=== PATIENT | male | born 1945 | race Caucasian/White ===

== ENCOUNTER 2019-02-01 09:46 | Emergency (ER) | payer MEDICARE ==
[~2019-02-01] VITALS: Ht 172.7 cm; Wt 102.2 kg
[2019-02-01 09:47] VITALS: BP 152/77
[2019-02-01] MEDS ORDERED: METO1TAB32 PO (09:59)
[2019-02-01] MEDS ORDERED: PRED5PAK PO (09:59)
[2019-02-01] MEDS ORDERED: EZET10TA21 PO (09:59)
[2019-02-01] MEDS ORDERED: CLOP75TA2 PO (09:59)
[2019-02-01] MEDS ORDERED: COQ-30CA2 PO (09:59)
--- NOTE | 2019-02-01 11:00 | REP ---
LEFT FOOT, FOUR VIEWS: Four views of the left foot performed. There is no acute fracture or dislocation. There is inferior calcaneal spurring. Scattered vascular calcifications are noted in the soft tissues. Spurring and subchondral sclerosis is noted at the 1st metatarsophalangeal joint. IMPRESSION: Degenerative changes without fracture or dislocation. Electronically Signed by Eugenio Mack MD 02/01/2019 11:58 P
== END 2019-02-01 11:24 | disposition home or self-care (01) ==
LOC: M ED 09:46
DX: S90.32XA Contusion of left foot, initial encounter (principal); W22.8XXA Striking against or struck by other objects, initial encounter; Y92.89 Other specified places as the place of occurrence of the external cause; Y99.0 Civilian activity done for income or pay; B35.3 Tinea pedis; I11.9 Hypertensive heart disease without heart failure; Z95.5 Presence of coronary angioplasty implant and graft; Z88.2 Allergy status to sulfonamides; Z79.899 Other long term (current) drug therapy; Z79.02 Long term (current) use of antithrombotics/antiplatelets; Z79.52 Long term (current) use of systemic steroids

== ENCOUNTER 2020-11-09 09:38 | Emergency (ER) | payer MEDICARE ==
[~2020-11-09] VITALS: Ht 170.2 cm; Wt 103.0 kg
[~2020-11-09 09:38] MED LIST: CLOP75TA2 PO; COQ-30CA2 PO; EZET10TA21 PO; METO1TAB32 PO; PRED5PAK PO
--- NOTE | 2020-11-09 10:52 | REP ---
INDICATION: pain after twisting COMPARISON: None TECHNIQUE: Five views FINDINGS: There is mild tricompartmental marginal osteophytosis with mild medial compartmental and patellofemoral joint space narrowing. There is an incidental fabella. There is no acute fracture, dislocation, or subluxation. Mild calcifications are seen in both medial and lateral compartments. IMPRESSION: Chronic changes as described above. There is no evidence of an acute abnormality. Meniscal calcifications likely secondary to calcified meniscal degenerative changes. <Electronically signed by Jordan Montano > 11/09/20 1047
[2020-11-09] MEDS ORDERED: NAPR-837 PO (11:35)
[2020-11-09 11:49] VITALS: BP 140/81
== END 2020-11-09 11:50 | disposition home or self-care (01) ==
LOC: M ED 09:38
DX: S89.91XA Unspecified injury of right lower leg, initial encounter (principal); X50.9XXA Other and unspecified overexertion or strenuous movements or postures, initial encounter; Y92.018 Other place in single-family (private) house as the place of occurrence of the external cause; I10 Essential (primary) hypertension; I25.10 Atherosclerotic heart disease of native coronary artery without angina pectoris; Z95.5 Presence of coronary angioplasty implant and graft; Z79.899 Other long term (current) drug therapy; Z79.01 Long term (current) use of anticoagulants; Z88.1 Allergy status to other antibiotic agents; Z88.2 Allergy status to sulfonamides

== ENCOUNTER → 2020-11-13 | Outpatient (CLI) | payer MEDICARE ==
[~2020-11-13] MED LIST changes: +NAPR-837 PO
--- NOTE | 2020-11-13 19:11 | REP ---
INDICATION: MENISCUS TEAR, SEVERE PAIN UNABLE TO WT BEAR/STRAI. COMPARISON: Radiographs 11/09/2020. TECHNIQUE: Multiple sequences obtained in the axial, coronal and sagittal planes. FINDINGS: Menisci: There are complex tears of the posterior horn of medial meniscus and posterior horn of lateral meniscus. Cruciate ligaments: Intact. Collateral ligaments: Intact. Extensor mechanism/patellar retinacula: Intact. Cartilage: There is moderately severe chondromalacia of the medial femoral condyle and tibial plateau, with articular surface irregularity particularly of the femoral condyle. There is relatively mild diffuse chondromalacia of the lateral femoral condyle and tibial plateau, as well as the patella. Bone marrow: There is mild subchondral marrow edema in the medial femoral condyle and tibial plateau. Joint fluid: There is a large joint effusion. There is a suprapatellar plica. Popliteal region: No cyst. There is diffuse circumferential soft tissue edema. IMPRESSION: Complex tears of posterior horn medial meniscus and posterior horn lateral meniscus. Cruciate and collateral ligaments are intact. Moderately severe chondromalacia medial femoral condyle and tibial plateau with subchondral marrow edema. Large joint effusion. <Electronically signed by Eugenio Mack > 11/13/20 0136
== END ==
LOC: M PLARAD 14:48
PROVIDERS: ATTEND Orthopaedic Surgery Adult Reconstructive Orthopaedic Surgery
DX: S83.241A Other tear of medial meniscus, current injury, right knee, initial encounter (principal); M23.3 Other meniscus derangements; M94.20 Chondromalacia, unspecified site; Y92.9 Unspecified place or not applicable; Y93.9 Activity, unspecified; Y99.9 Unspecified external cause status

== ENCOUNTER → 2020-11-16 | Outpatient (CLI) | payer MEDICARE ==
[~2020-11-16] MED LIST changes: +ASPI81CH33 PO; +D200CAP2 PO; +GNP1000T11 PO; +LUTE20CA11 PO; +MULT1TAB7 PO; +POTA99TA14 PO; +VITA-243 PO; +[UNRECOGNIZED DRUG - OTHER]
== END ==
LOC: M LABSMTC 11:26
PROVIDERS: ATTEND Anesthesiology
DX: Z01.818 Encounter for other preprocedural examination (principal); Z20.822 Contact with and (suspected) exposure to COVID-19

== ENCOUNTER 2020-11-19 11:13 | Day surgery (SDC) | payer MEDICARE ==
[~2020-11-19] VITALS: Ht 172.7 cm; Wt 93.4 kg
[~2020-11-19 11:13] MED LIST changes: -ASPI81CH33 PO; +LIDOCAINE 1% MDV 20ML VIAL SQ PRN
[2020-11-19] MEDS ORDERED: ASPI81CH33 PO (11:45)
[2020-11-19] MEDS ORDERED: ACETAMINOPHEN 500 MG TAB PO ONE (11:50)
[2020-11-19] MEDS ORDERED: GABAPENTIN 300 MG CAP PO ONE (11:50)
[2020-11-19] MEDS ORDERED: LR 1,000 ML IV ONE (11:50)
[2020-11-19] MEDS ORDERED: ONDANSETRON 4MG/2ML VIAL IV ONE (11:55)
[2020-11-19] MEDS ORDERED: CelecoXIB 400 MG CAP PO ONE (11:55)
[2020-11-19] MEDS ORDERED: fentaNYL 100 MCG/2 ML INJECTION (J3010) As Ordered ONE (12:16)
[2020-11-19] MEDS ORDERED: MIDAZOLAM INJ 2MG/2ML VIAL (J2250 PER 1MG) As Ordered ONE (12:17)
[2020-11-19] MEDS ORDERED: EPINEPHrine 1MG/ML INJ 30ML MD-VIAL As Ordered ONE (12:37)
[2020-11-19] MEDS ORDERED: BUPIVACAINE/EPIN 0.5% 30 ML VIAL As Ordered ONE (12:37)
[2020-11-19] MEDS ORDERED: propofoL 200 MG/20 ML VIAL As Ordered ONE (12:40)
[2020-11-19] MEDS ORDERED: LIDOCAINE 2% 100MG/5ML SDV (FOR ANES.) As Ordered ONE (12:42)
[2020-11-19] MEDS ORDERED: ETOMIDATE INJ 20MG/10ML VIAL As Ordered ONE (13:15)
[2020-11-19] MEDS ORDERED: oxyCODONE 5MG TAB PO PRN (14:35)
[2020-11-19] MEDS ORDERED: ONDANSETRON 4MG/2ML VIAL IV PRN (14:35)
[2020-11-19] MEDS ORDERED: LR 1,000 ML IV SCH ×2 (14:35)
[2020-11-19] MEDS ORDERED: fentaNYL 100 MCG/2 ML INJECTION (J3010) IV PRN (14:35)
--- NOTE | 2020-11-19 15:00 | ROOPDOC ---
[facility] Report Of Operation Report of Operation DATE OF PROCEDURE: 11/19/20 PREPROCEDURE DIAGNOSES: Right knee medial and lateral meniscal tears POSTPROCEDURE DIAGNOSES: Right knee medial and lateral meniscal tears with dif fuse grade 4 changes to Medial femoral condyle and plica present PROCEDURE: Left knee arthroscopic debridement Debridement of medial meniscal tear, posterior horn and body Debridement of lateral meniscal tear, posterior body Abrasion chondroplasty to medial femoral condyle Tricompartmental debridement Plicaectomy suprapatellar pouch SURGEON: Giovanni Martini MD [employer] OPERATOR: None ANESTHESIA: Gen. anesthetic LMA ESTIMATED BLOOD LOSS: Less than 15 mL mL. COMPLICATIONS: No known complications. REMARKS: Tourniquet inflated for 34 minutes. Overall, there was more significant osteoarthritic change noted on the diagnostic arthroscopy compared to the MRI. PROCEDURE NOTE: The patient was seen in the preoperative area, Consent was reviewed or obtained and the appropriate extremity was marked. DESCRIPTION OF PROCEDURE: The patient was brought to the operating room and after a surgical pause, the anesthetic was induced. The patient was appropriately positioned supine on the operating room table. A tourniquet was applied to the appropriate thigh with appropriate padding. Side bolster was also applied to help with manipulation of the extremity during the procedure. The extremity was prepped with chlorhexidine. The patient was draped in the normal sterile fashion. After a surgical safety checklist was performed, and a timeout was performed, the tourniquet was inflated and the incision over the lateral portal site was carried out. The trocar was introduced using the blunt tip. The scope was introduced and the fluid was allowed to run until the joint was insufflated with the scope in the patellofemoral joint. A diagnostic arthroscopy was then carried out. A medial portal was established using needle localization technique. A superior lateral portal was also established using needle localization. Suprapatellar pouch: Inflamed synovium with plica debrided with arthroscopic shaver Trochlea: 1-2 Patella: Grade 1-2 changes Debrided with arthroscopic shaver Medial gutter: Clear Lateral gutter: Clear. Medial meniscus: Posterior horn extending into body, complex meniscal tear, debrided with punches and arthroscopic shaver. Medial femoral condyle: Diffuse grade 4 changes Medial tibial condyle: Grade 1-2 changes debrided with shaver ACL: Stable with stranding apparent Lateral meniscus: Complex posterior body tear, debrided with punches and arthroscopic shaver. Lateral femoral condyle: Grade 1 Lateral tibial plateau: Grade 1 Once the arthroscopic procedure was completed, the fluid was removed from the joint and the wounds were closed with 3. 0 Monocryl suture. Local anesthetic of 0.5% Marcaine with epi was instilled in the soft tissues and into the joint region. Mastisol was applied to the skin followed by Steri-Strips and Telfa and Tegaderm dressing. This was reinforced with an abdominal pad and a large Declan wrap was placed up to the level of the thigh from the foot and ankle. The patient tolerated the procedure well with no known complications. The patient will be seen for follow-up within 2 weeks, as scheduled. Postoperative instruction booklet was provided. The patient will have prescriptions for oxycodone for pain, and senna for constipation. Aspirin may be discontinued and the patient's home Clopidogrel can be restarted postop day 1. Tylenol can be used as directed by bottle instructions. Prescriptions were sent to [facility] pharmacy as requested. These were for oxycodone and for senna. I met with the patient's in the waiting room and provided her with some instructions as described above The patient demonstrated severe medial femoral condylar changes. I will see him for follow-up in approximately 2 weeks' time to see how he is doing. At that point, we'll make the decision if he would like to move forward with a total knee procedure, as he does have tricompartmental involvement. 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 There is also consideration for cortisone injections. As the patient primarily resides in [place]. GIOVANNI MARTINI MD Nov 19, 2020 15:00
[2020-11-19 16:25] VITALS: BP 151/90
--- NOTE | 2020-11-19 16:38 | ECGEPIP ---
[facility] Test Date: 2020-11-19 Pat Name: JACOB HAGEN Department: Room: - Gender: Male Bend Up: RF : 1945 Requested By: ARACELI Banerjee Order Number: [id number] Reading MD: Brisa Davenport Measurements Intervals [place] Rate: 84 P: 53 OR: 244 QRS: -42 QRSD: 112 T: 37 QT: 374 QTc: 441 Interpretive Statements Sinus rhythm with 1st degree AV block Left axis deviation LAFB Minimal voltage criteria for LVH, may be normal variant ( Elijah product ) Septal infarct , age undetermined NO PRIOR Electronically Signed on 11-19-2020 16:38:22 EDT by Brisa Davenport
== END 2020-11-19 16:25 | disposition home or self-care (01) ==
LOC: M SDC 11:13
PROVIDERS: ATTEND Orthopaedic Surgery Adult Reconstructive Orthopaedic Surgery
DX: S83.241A Other tear of medial meniscus, current injury, right knee, initial encounter (principal); S83.281D Other tear of lateral meniscus, current injury, right knee, subsequent encounter; M11.20 Other chondrocalcinosis, unspecified site; X58.XXXA Exposure to other specified factors, initial encounter; Y92.89 Other specified places as the place of occurrence of the external cause; I25.2 Old myocardial infarction; I10 Essential (primary) hypertension; E78.00 Pure hypercholesterolemia, unspecified; Z95.5 Presence of coronary angioplasty implant and graft; M54.2 Cervicalgia; G47.30 Sleep apnea, unspecified; R06.83 Snoring; T88.4XXD Failed or difficult intubation, subsequent encounter; Z88.2 Allergy status to sulfonamides; Z79.899 Other long term (current) drug therapy; Z79.02 Long term (current) use of antithrombotics/antiplatelets; Z79.82 Long term (current) use of aspirin; Z79.52 Long term (current) use of systemic steroids
CPT/HCPCS: 29880; 93005; J2250; J2405; J3010

== ENCOUNTER 2020-11-24 17:36 | Observation (INO) | payer MEDICARE ==
[~2020-11-24] VITALS: Ht 170.2 cm; Wt 102.5 kg
[~2020-11-24 17:36] MED LIST changes: +ASPI81CH33 PO; -LIDOCAINE 1% MDV 20ML VIAL SQ PRN
[2020-11-24] MEDS ORDERED: OXYC-517 PO (17:46)
--- NOTE | 2020-11-24 18:53 | REP ---
INDICATION: R/O DVT. COMPARISON: None. TECHNIQUE: Multiple ultrasonographic images of the deep venous structures of the right lower extremity were obtained from the inguinal ligament to the ankle. Venous compression techniques, color doppler imaging, and augmentation techniques were also obtained where appropriate. As per the ACR guidelines the anterior tibial vein can not be effectively evaluated. Only compression techniques in the calf on the peroneal and posterior tibial veins was attempted/performed. FINDINGS: There is no abnormal echogenic material seen within any of the visualized deep venous structures that would suggest acute thrombosis. Coaptation is unremarkable throughout. Doppler interrogation shows an expected response to respiratory variability and augmentation in the thigh. Compression techniques in the calf showed no abnormality. The color flow images show what appears to be a normal vascular pattern throughout the thigh. IMPRESSION: There is no ultrasonographic evidence of deep venous thrombosis involving any of the visualized deep venous structures of the right lower extremity as described above. <Electronically signed by Jordan Montano > 11/24/20 2622
[2020-11-24 20:37] LABS: BASO # 0.1 10^3/uL (0.0-0.2); BASO % 0.9 % (0.0-1.0); EOS # 0.2 10^3/uL (0.0-0.5); EOS % 2.3 % (0.0-3.0); HEMATOCRIT 41.3 % (42.0-52.0); HEMOGLOBIN 13.5 g/dl (13.5-17.5); LYMPH # 1.1 10^3/uL (1.5-5.0); LYMPH % 15.3 % (24.0-44.0); MEAN CORPUSCULAR HGB CONC 32.7 g/dl (32.0-36.5); MEAN CORPUSCULAR VOLUME 91.8 fl (80.0-96.0); MONO # 1.1 10^3/uL (0.0-0.8); MONO % 16.4 % (2.0-8.0); NEUTROPHILS # 4.5 10^3/uL (1.5-8.5); NEUTROPHILS % 64.8 % (36.0-66.0); PLATELET COUNT, AUTOMATED 271 10^3/uL (150-450); WHITE BLOOD COUNT 6.9 10^3/uL (4.0-10.0)
[2020-11-24] MEDS ORDERED: CEFEPIME HCL 1 GM in D5W MINI-BAG PLUS 50 ML IV ONE (21:00)
[2020-11-24] MEDS ORDERED: MORPHINE 2 MG/ML 1ML VIAL (J2270) IV ONE (21:00)
[2020-11-24] MEDS ORDERED: VANCOMYCIN HCL 1,000 MG, VIAL MATE ADAPTER 1 EACH in NS 250 ML IV ONE (21:00)
[2020-11-24 21:03] LABS: ERYTHROCYTE SEDIMENTATION RATE 49 mm/hr (0-20)
[2020-11-24 21:09] LABS: ALBUMIN 3.2 GM/DL (3.2-5.2); ALT/SGPT 34 U/L (12-78); BILIRUBIN,DIRECT 0.1 MG/DL (0.0-0.2); BILIRUBIN,TOTAL 0.3 MG/DL (0.2-1.0); BLOOD UREA NITROGEN 11 MG/DL (7-18); CALCIUM LEVEL 8.6 MG/DL (8.8-10.2); CARBON DIOXIDE LEVEL 27 MEQ/L (21-32); CHLORIDE LEVEL 105 MEQ/L (98-107); GLOMERULAR FILTRATION RATE > 60.0 (>42); GLUCOSE, FASTING 116 MG/DL (70-100); POTASSIUM SERUM 4.3 MEQ/L (3.5-5.1); SODIUM LEVEL 137 MEQ/L (136-145); TOTAL PROTEIN 6.6 GM/DL (6.4-8.2)
[2020-11-24] MEDS ORDERED: ACETAMINOPHEN TAB 650MG DOSE (2X325MG) PO PRN (21:25)
[2020-11-24] MEDS ORDERED: MAALOX 30 ML SUSP *UDC PO PRN (21:25)
[2020-11-24] MEDS ORDERED: MOM 30ML SUSPENSION UDC PO PRN (21:25)
--- NOTE | 2020-11-24 21:27 | HPEPDOC ---
[facility] Medical History & Physical Date of Admission Nov 24, 2020 Date of Service: Nov 24, 2020 Other Provider Dominguez Smith Attending Physician: PETTY DHALIWAL MD History and Physical TIME OF SERVICE: 930pm CHIEF COMPLAINT: pain HISTORY OF PRESENT ILLNESS: This 75 yr old M had right knee arthroscopy, medial and lateral meniscus debridement and medial femoral chondroplasty on Thursday; thereafter he was able to walk with the use of crutches but yesterday he developed right foot pain redness and swelling that spread upwards and affects his whole right lower leg. He is still able to bend his knee but has severe pain. He denies associated fever or chills. REVIEW OF SYSTEMS: 10-point review of systems negative except as listed in HPI PAST MEDICAL/ SURGICAL HISTORY: CAD w placement of 3 stents, SHADE, RA on chronic steroids, appendectomy, right shoulder surgery, right knee surgery SOCIAL HISTORY: He is from [place], comes to the area in the summer & lives with his . FAMILY HISTORY: n/a ALLERGIES: Please see below. HOME MEDICATIONS: Please see below. PHYSICAL EXAMINATION: Vital Signs Date Time Temp Pulse Resp B/P (MAP) Pulse Ox O2 Delivery O2 Flow Rate FiO2 11/24/20 17:37 97.9 100 20 159/86 (110) 95 Room Air GENERAL APPEARANCE: well-nourished and developed / NAD HEENT: EOMI / MMM&P CARDIOVASCULAR: RRR/NMRG LUNGS: CTAB on RA ABDOMEN: contour obese MUSCULOSKELETAL: right foot and lower leg swollen and warm NEUROLOGICAL: CN 2-12 intact / speech not dysarthric PSYCHIATRIC: A&O x3 LABORATORY DATA: IMAGING: RLE US: neg for DVT / Right Knee xray: report pending....... MICROBIOLOGY: respiratory panel neg ASSESSMENT: is a 75 yr old w CAD, SHADE, RA and Obesity who will be admitted for RLE cellulitis. PLAN: 1 RLE Cellulitis Despite the absence of SIRS and the absence of knee pain and swelling there is concern that the may harbor atypical or hospital acquired organisms Plan: admit to medical floor / elevate leg / fall precautions/ f/u xray / c/w Cefazolin and Vanc pending blood cx / Oxycodone / the day time team may consider Ortho consult & PT consult if indicated 2 Chronic CAD Plan: Plavix, Zetia, Metoprolol 3 RA Plan: prednisone 4 SHADE Plan: nocturnal O2 w pulse ox 5 Class 1 Obesity Complicates care DVT px w Lovenox Dispo: home after at less than 2 midnights stay Home Medications Scheduled Ascorbic Acid (Vitamin C) 500 Mg Tablet, 500 MG PO DAILY Clopidogrel Bisulfate (Clopidogrel) 75 Mg Tablet, 75 MG PO DAILY Ezetimibe (Ezetimibe) 10 Mg Tablet, 10 MG PO DAILY Garlic (Garlic) 100 Mg Tablet, 100 MG PO DAILY Glucosamine Sulfate Dipot Chlr (Glucosamine) 1,000 Mg Tablet, 1,000 MG PO DAILY Lutein (Lutein) 20 Mg Capsule, 20 MG PO DAILY Lysine (l-Lysine) 500 Mg Tablet, 500 MG PO DAILY Metoprolol Succinate (Metoprolol Succinate) 25 Mg Tab.er.24h, 25 MG PO DAILY Multivitamin with Minerals (Multiple Vitamin) 1 Each Tablet, 1 TAB PO DAILY [place]-3 Fatty Acids/Fish Oil (Fish Oil 1,000 mg Capsule) 1 Each Capsule, 1,000 MG PO DAILY Potassium Gluconate (Potassium) 99 Mg Tablet, 99 MG PO DAILY Prednisone (Prednisone) 5 Mg Tablet, 5 MG PO DAILY Ubidecarenone/Vit E Acet (Co Q-10 100 mg Softgel) 1 Each Capsule, 100 MG PO RICH LY Vit A/Vit C/Vit E/Zinc/Copper (Preservision Areds Softgel) 1 Each Capsule, 1 CAP PO DAILY Scheduled PRN Oxycodone HCl (Oxycodone HCl) 5 Mg Tablet, 5 MG PO Q4H PRN for pain Allergies Coded Allergies: Sulfa (Sulfonamide Antibiotics) (Verified Allergy, Intermediate, hives, 02/01/19) A-FIB/CHADSVASC A-FIB History Current/History of A-Fib/PAF?: No Current PO Anticoag Therapy: No PETTY DHALIWAL MD Nov 24, 2020 21:27
[2020-11-24] MEDS ORDERED: L-LY500T6 PO (21:36)
[2020-11-24] MEDS ORDERED: PRED5TA PO (21:36)
[2020-11-24] MEDS ORDERED: PRESCAP PO (21:39)
[2020-11-24] MEDS ORDERED: FISH1000 PO (21:39)
[2020-11-24] MEDS ORDERED: ODOR100T3 PO (21:39)
[2020-11-24] MEDS ORDERED: CO Q100C10 PO (21:39)
[2020-11-24] MEDS: VANCOMYCIN HCL 1,000 MG, VIAL MATE ADAPTER 1 EACH in NS 250 ML IV SCH (22:21)
[2020-11-24 22:31] LABS: RSV AMPLIFICATION NEGATIVE (NEGATIVE)
[2020-11-24 22:45] VITALS: BP 138/60
[2020-11-24] MEDS ORDERED: MORPHINE 2 MG/ML 1ML VIAL (J2270) IV PRN (23:05)
[2020-11-24] MEDS ORDERED: KETOROLAC 30 MG/ML 1ML VIAL IV PRN (23:05)
[2020-11-24] MEDS ORDERED: oxyCODONE 5MG TAB PO PRN (23:10)
[2020-11-24] MEDS: ceFAZolin SOD 1 GM in D5W MINI-BAG PLUS 50 ML IV SCH (23:47)
--- NOTE | 2020-11-25 00:03 | REPVR ---
PROCEDURE INFORMATION: Exam: XR Right Knee Exam date and time: 11/24/2020 10:38 PM Age: 75 years old Clinical indication: Other: Right knee recent meniscal work TECHNIQUE: Imaging protocol: XR Right knee. Views: 1 or 2 views. COMPARISON: MRI-Knee WITHOUT CONTRAST 11/13/2020 5:38 PM FINDINGS: Bones/joints: There is medial compartment joint space narrowing. Mild periarticular spurring in the patellofemoral joint. Small joint effusion. No acute fracture or malalignment. No erosive or destructive changes in the knee joint. Soft tissues: Mild soft tissue swelling. IMPRESSION: 1. Degenerative joint space narrowing in the medial compartment. Mild patellofemoral joint osteoarthritis. 2. Small joint effusion and mild soft tissue swelling. Electronically signed by: Timbo Narayan On 11/25/2020 00:02:35 AM
--- NOTE | 2020-11-25 00:04 | REPVR ---
PROCEDURE INFORMATION: Exam: XR Right Foot Exam date and time: 11/24/2020 10:38 PM Age: 75 years old Clinical indication: Other: Right knee recent meniscal work TECHNIQUE: Imaging protocol: XR Right foot. Views: 1 or 2 views. COMPARISON: CR Foot, complete 02/01/2019 10:05 AM FINDINGS: Bones/joints: Advanced osteoarthritis in the hallux MTP joint. Changes of osteoarthritis in the midfoot. Calcaneal enthesopathy. No fracture or malalignment. Soft tissues: Unremarkable. IMPRESSION: 1. Osteoarthritis. 2. No fracture or malalignment. Electronically signed by: Timbo Narayan On 11/25/2020 00:04:17 AM
[2020-11-25] MEDS: VANCOMYCIN HCL 1,000 MG, VIAL MATE ADAPTER 1 EACH in NS 250 ML IV SCH ×4 (00:25→21:47)
[2020-11-25 06:36] VITALS: BP 150/88
[2020-11-25 06:47] LABS: HEMATOCRIT 37.4 % (42.0-52.0); HEMOGLOBIN 12.2 g/dl (13.5-17.5); MEAN CORPUSCULAR HGB CONC 32.6 g/dl (32.0-36.5); MEAN CORPUSCULAR VOLUME 91.9 fl (80.0-96.0); PLATELET COUNT, AUTOMATED 261 10^3/uL (150-450); RED BLOOD COUNT 4.07 10^6/uL (4.30-6.10); WHITE BLOOD COUNT 6.4 10^3/uL (4.0-10.0)
[2020-11-25 07:16] LABS: BLOOD UREA NITROGEN 9 MG/DL (7-18); CALCIUM LEVEL 8.3 MG/DL (8.8-10.2); CARBON DIOXIDE LEVEL 27 MEQ/L (21-32); CHLORIDE LEVEL 106 MEQ/L (98-107); CREATININE FOR GFR 0.73 MG/DL (0.70-1.30); GLOMERULAR FILTRATION RATE > 60.0 (>42); GLUCOSE, FASTING 125 MG/DL (70-100); POTASSIUM SERUM 3.3 MEQ/L (3.5-5.1); SODIUM LEVEL 138 MEQ/L (136-145)
[2020-11-25 07:53] LABS: URIC ACID 4.3 MG/DL (3.5-7.2)
[2020-11-25] MEDS ORDERED: POTASSIUM CHLORIDE 10 MEQ SR TABLET PO ONE (08:00)
--- NOTE | 2020-11-25 08:29 | IPNPDOC ---
Subjective Date Seen The patient was seen on 11/25/20. Subjective Chief Complaint/HPI Patient complains of pain , redness and swelling in the right bid toe and reported that the redness had extended to the top of foot upto the ankle. At present i see that there is inflammation only of the first right metatarsophalangeal joint. Only that single joint is tender to palpation and movement with redness around it. No pain or swelling or redness of the right ankle joint, no restriction in movement. Right knee joint with dressing on the surgical site no redness or warmth or swelling. No fever or chills. Patient wants to go home. I explained that we have to wait for the blood cultures to come back before i can discharge him. Objective Physical Examination General Exam: Positive: Alert, Cooperative, No Acute Distress Eye Exam: Positive: PERRLA, Conjunctiva & lids normal, EOMI; Negative: Sclera icteric ENT Exam: Positive: Atraumatic, Mucous membr. moist/pink, Pharynx Normal Neck Exam: Positive: Supple; Negative: JVD, thyromegaly Chest Exam: Positive: Clear to auscultation, Normal air movement Heart Exam: Positive: Rate Normal, Regular Rhythm, Normal S1, Normal S2, Murmurs (systolic murmur present); Negative: Rubs Abdomen Exam: Positive: Normal bowel sounds, Soft; Negative: Tenderness, Hepatospenomegaly Extremity Exam: Positive: Tenderness (right 1st metatarsophaphalingeal joint. ), Swelling (Right 1st MTP joint); Negative: Clubbing, Cyanosis, Edema Psych Exam: Positive: Memory Intact, Oriented x 3 Assessment /Plan Assessment This 75 yr old M had right knee arthroscopy, medial and lateral meniscus debridement and medial femoral chondroplasty on 11/19; there after he was able to walk with the use of crutches but yesterday he developed right foot pain redness and swelling that spread upwards and affects his whole right lower leg. He is still able to bend his knee but has severe pain. He was admitted for right leg cellulitis. RLE Cellulitis await blood cultures continue cefazolin and vancomycin Right 1st MTP joint acute gout will check uric acid level colchicine and naproxen. and oxycodone. Recent Arthroscopic surgery of right knee on 11/19/20 Debridement of medial meniscal tear, posterior horn and body, of lateral meniscal tear, posterior body, Abrasion chondroplasty to medial femoral condyle, Tricompartmental debridement, Plicaectomy suprapatellar pouch activity/ weight bearing as instructed by Dr Leon after surgery keep foot elevated. CAD Plavix, Zetia, Metoprolol RA prednisone SHADE nocturnal O2 w pulse ox Class 1 Obesity BMI 36.5 Complicates care Plan/VTE VTE Prophylaxis Ordered?: Yes VS, I&O, 24H, Fishbone Vital Signs/I&O Vital Signs Date Time Temp Pulse Resp B/P (MAP) Pulse Ox O2 Delivery O2 Flow Rate FiO2 11/25/20 06:36 97.3 93 150/88 (108) 94 Room Air 11/24/20 22:45 22 I&O- Last 24 Hours up to 6 AM 11/25/20 06:00 Intake Total 370 ml Output Total 400 ml Balance -30 ml Laboratory Data 24H LABS Laboratory Tests 2 11/24/20 19:52: Lactic Acid Level 1.9 11/24/20 20:28: Immature Granulocyte % (Auto) 0.3, Neutrophils (%) (Auto) 64.8, Lymphocytes (%) (Auto) 15.3L, Monocytes (%) (Auto) 16.4H, Eosinophils (%) (Auto) 2.3, Basophils (%) (Auto) 0.9, Neutrophils # (Auto) 4.5, Lymphocytes # (Auto) 1.1L, Monocytes # (Auto) 1.1H, Eosinophils # (Auto) 0.2, Basophils # (Auto) 0.1, Nucleated Red Bl ood Cells % (auto) 0.0, Erythrocyte Sedimentation Rate 49H, Anion Gap 5L, Glomerular Filtration Rate > 60.0, Calcium Level 8.6L, Total Bilirubin 0.3, Direct Bilirubin 0.1, Aspartate Amino Transf (AST/SGOT) 26, Alanine Aminotransferase (ALT/SGPT) 34, Alkaline Phosphatase 78, C-Reactive Protein, Quantitative 11.10H, Total Protein 6.6, Albumin 3.2, Albumin/Globulin Ratio 0.9 11/24/20 21:25: Coronavirus (COVID-19)(PCR) NEGATIVE, Influenza Type A (RT-PCR) NEGATIVE, Influenza Type B (RT-PCR) NEGATIVE, Respiratory Syncytial Virus (PCR) NEGATIVE 11/25/20 06:14: Nucleated Red Blood Cells % (auto) 0.0, Anion Gap 5L, Glomerular Filtration Rate > 60.0, Calcium Level 8.3L, Uric Acid 4.3 CBC/BMP Laboratory Tests 11/24/20 20:28 11/25/20 06:14 Microbiology Microbiology 11/24/20 Blood Culture, Received Pending 11/24/20 Blood Culture, Received Pending JANAY DAVILA MD Nov 25, 2020 08:29
[2020-11-25] MEDS: ceFAZolin SOD 1 GM in D5W MINI-BAG PLUS 50 ML IV SCH ×3 (08:44→23:29)
[2020-11-25] MEDS: predniSONE 5 MG TAB PO SCH (08:47)
[2020-11-25] MEDS: ENOXAPARIN 40MG/0.4ML SYRINGE (J1650 PER 10MG) SC SCH (08:47)
[2020-11-25] MEDS: EZETIMIBE 10 MG TAB (ZETIA) PO SCH (08:47)
[2020-11-25 08:48] VITALS: BP 150/88
[2020-11-25] MEDS: CLOPIDOGREL 75 MG TAB PO SCH (08:48)
[2020-11-25] MEDS: METOPROLOL SUCC *XL* 25MG TAB (TopROL *XL*) PO SCH (08:48)
[2020-11-25] MEDS: NAPROXEN 250 MG TAB PO SCH ×2 (08:49→21:46)
[2020-11-25] MEDS: COLCHICINE 0.6 MG TABLET PO SCH ×2 (08:49→21:46)
[2020-11-25 14:00] VITALS: BP 141/85
[2020-11-25 22:00] VITALS: BP 155/85
[2020-11-26 05:26] VITALS: BP 139/85
[2020-11-26] MEDS: VANCOMYCIN HCL 1,000 MG, VIAL MATE ADAPTER 1 EACH in NS 250 ML IV SCH (05:32)
[2020-11-26 06:32] LABS: BASO # 0.1 10^3/uL (0.0-0.2); BASO % 0.8 % (0.0-1.0); EOS # 0.2 10^3/uL (0.0-0.5); EOS % 3.6 % (0.0-3.0); HEMATOCRIT 37.3 % (42.0-52.0); LYMPH # 1.2 10^3/uL (1.5-5.0); LYMPH % 18.5 % (24.0-44.0); MEAN CORPUSCULAR HEMOGLOBIN 29.7 pg (27.0-33.0); MEAN CORPUSCULAR HGB CONC 32.2 g/dl (32.0-36.5); MEAN CORPUSCULAR VOLUME 92.3 fl (80.0-96.0); MONO # 1.1 10^3/uL (0.0-0.8); MONO % 16.4 % (2.0-8.0); NEUTROPHILS # 3.9 10^3/uL (1.5-8.5); NEUTROPHILS % 60.4 % (36.0-66.0); PLATELET COUNT, AUTOMATED 265 10^3/uL (150-450); RED BLOOD COUNT 4.04 10^6/uL (4.30-6.10); WHITE BLOOD COUNT 6.4 10^3/uL (4.0-10.0)
[2020-11-26 06:59] LABS: BLOOD UREA NITROGEN 8 MG/DL (7-18); CALCIUM LEVEL 8.4 MG/DL (8.8-10.2); CARBON DIOXIDE LEVEL 25 MEQ/L (21-32); CHLORIDE LEVEL 110 MEQ/L (98-107); CREATININE FOR GFR 0.63 MG/DL (0.70-1.30); GLOMERULAR FILTRATION RATE > 60.0 (>42); GLUCOSE, FASTING 105 MG/DL (70-100); POTASSIUM SERUM 3.6 MEQ/L (3.5-5.1); SODIUM LEVEL 141 MEQ/L (136-145)
[2020-11-26] MEDS: predniSONE 5 MG TAB PO SCH (08:54)
[2020-11-26] MEDS: ceFAZolin SOD 1 GM in D5W MINI-BAG PLUS 50 ML IV SCH (08:54)
[2020-11-26] MEDS: CLOPIDOGREL 75 MG TAB PO SCH (08:54)
[2020-11-26] MEDS: NAPROXEN 250 MG TAB PO SCH (08:54)
[2020-11-26] MEDS: METOPROLOL SUCC *XL* 25MG TAB (TopROL *XL*) PO SCH (08:55)
[2020-11-26] MEDS: ENOXAPARIN 40MG/0.4ML SYRINGE (J1650 PER 10MG) SC SCH (08:55)
[2020-11-26] MEDS: EZETIMIBE 10 MG TAB (ZETIA) PO SCH (08:55)
[2020-11-26] MEDS: COLCHICINE 0.6 MG TABLET PO SCH (08:56)
[2020-11-26] MEDS ORDERED: CEFU50TA PO (11:46)
[2020-11-26] MEDS ORDERED: PRED20TA PO (11:46)
--- NOTE | 2020-11-26 12:34 | IPNPDOC ---
Subjective Date Seen The patient was seen on 11/26/20. Subjective Chief Complaint/HPI No complaints this morning. right leg and foot pain and redness resolved. Only still has some tenderness at the right 1st MTP joint. Wants to go home. Will be discharged today. Objective Physical Examination General Exam: Positive: Alert, Cooperative, No Acute Distress Eye Exam: Positive: PERRLA, Conjunctiva & lids normal, EOMI; Negative: Sclera icteric ENT Exam: Positive: Atraumatic, Mucous membr. moist/pink, Pharynx Normal Neck Exam: Positive: Supple; Negative: JVD, thyromegaly Chest Exam: Positive: Clear to auscultation, Normal air movement Heart Exam: Positive: Rate Normal, Regular Rhythm, Normal S1, Normal S2, Murmurs (systolic murmur present); Negative: Rubs Abdomen Exam: Positive: Normal bowel sounds, Soft; Negative: Tenderness, Hepatospenomegaly Extremity Exam: Positive: Tenderness (right 1st metatarsophaphalingeal joint. ), Swelling (Right 1st MTP joint); Negative: Clubbing, Cyanosis, Edema Psych Exam: Positive: Memory Intact, Oriented x 3 Assessment /Plan Assessment This 75 yr old M had right knee arthroscopy, medial and lateral meniscus debridement and medial femoral chondroplasty on 11/19; there after he was able to walk with the use of crutches but yesterday he developed right foot pain redness and swelling that spread upwards and affects his whole right lower leg. He is still able to bend his knee but has severe pain. He was admitted for right leg cellulitis. RLE Cellulitis blood cultures negative till date cefuroxime Right 1st MTP joint acute gout uric acid level normal prednisone 20 mg x 5 days, continue oxycodone as needed follow up with orthopedics. Recent Arthroscopic surgery of right knee on 11/19/20 Debridement of medial meniscal tear, posterior horn and body, of lateral meniscal tear, posterior body, Abrasion chondroplasty to medial femoral condyle, Tricompartmental debridement, Plicaectomy suprapatellar pouch activity/ weight bearing as instructed by Dr Leon after surgery keep foot elevated. Follow up with orthopedics on 12/03/20 CAD/ stents Plavix, Zetia, Metoprolol RA prednisone SHADE nocturnal O2 w pulse ox Class 1 Obesity BMI 36.5 Complicates care Dispo: home. Follow up with PMD and orthopedics. Follow up final blood cultures. Plan/VTE VTE Prophylaxis Ordered?: Yes VS, I&O, 24H, Fishbone Vital Signs/I&O Vital Signs Date Time Temp Pulse Resp B/P (MAP) Pulse Ox O2 Delivery O2 Flow Rate FiO2 11/26/20 05:26 97.7 81 18 139/85 (103) 96 Room Air I&O- Last 24 Hours up to 6 AM 11/26/20 06:00 Intake Total 2770 ml Output Total 300 ml Balance 2470 ml Laboratory Data 24H LABS Laboratory Tests 2 11/25/20 13:00: 11/25/20 13:02: Vancomycin Level Trough 12.7 11/26/20 05:59: Immature Granulocyte % (Auto) 0.3, Neutrophils (%) (Auto) 60.4, Lymphocytes (%) (Auto) 18.5L, Monocytes (%) (Auto) 16.4H, Eosinophils (%) (Auto) 3.6H, Basophils (%) (Auto) 0.8, Neutrophils # (Auto) 3.9, Lymphocytes # (Auto) 1.2L, Monocytes # (Auto) 1.1H, Eosinophils # (Auto) 0.2, Basophils # (Auto) 0.1, Nucleated Red Blood Cells % (auto) 0.0, Anion Gap 6L, Glomerular Filtration Rate > 60.0, Calcium Level 8.4L CBC/BMP Laboratory Tests 11/26/20 05:59 Microbiology Microbiology 11/24/20 Blood Culture - Preliminary, Resulted No growth after 24 hours . All specim... 11/24/20 Blood Culture - Preliminary, Resulted No growth after 24 hours . All specim... JANAY DAVILA MD Nov 26, 2020 12:34
== END 2020-11-26 14:20 | disposition home or self-care (01) ==
LOC: M ED 17:36 → M ED INP 17:37 → M MS5PR 22:45
PROVIDERS: ADMIT Internal Medicine; ATTEND Internal Medicine
DX: L03.115 Cellulitis of right lower limb (principal); Z98.890 Other specified postprocedural states; M79.671 Pain in right foot; M79.89 Other specified soft tissue disorders; M10.071 Idiopathic gout, right ankle and foot; I25.10 Atherosclerotic heart disease of native coronary artery without angina pectoris; Z95.5 Presence of coronary angioplasty implant and graft; M06.9 Rheumatoid arthritis, unspecified; G47.33 Obstructive sleep apnea (adult) (pediatric); E66.9 Obesity, unspecified; Z68.36 Body mass index [BMI] 36.0-36.9, adult; Z88.2 Allergy status to sulfonamides
CPT/HCPCS: 36415; 73560; 73620; 80048; 80076; 80202; 83605; 84145; 84550; 85025; 85027; 85652; 86140; 87040; 87631; 93971; 96365; 96366; 96367; 96372; 96375; 96376; 99285; G0378; J0690; J0692; J1650; J1885; J2270; J3370; J7512

== ENCOUNTER → 2020-12-03 | Outpatient (CLI) | payer MEDICARE ==
[~2020-12-03] MED LIST changes: +CEFU50TA PO; +CO Q100C10 PO; +FISH1000 PO; +L-LY500T6 PO; +ODOR100T3 PO; +OXYC-517 PO; +PRED20TA PO; +PRED5TA PO; +PRESCAP PO
--- NOTE | 2020-12-03 14:57 | REP ---
INDICATION: PAIN. COMPARISON: None. TECHNIQUE: AP, lateral, bilateral oblique views of the right ankle. FINDINGS: Generalized edema/swelling is suggested. Age-related degenerative changes including subtle cortical irregularity and spurring at the medial malleolus. The ankle mortise appears intact and relatively normal. Lateral view demonstrates calcaneal heel spur and subtle calcifications at the calcaneo-achilles insertion. No acute fracture or dislocation. No subcutaneous emphysema. IMPRESSION: Mild generalized soft tissue swelling and age-related changes suggested. <Electronically signed by Wilberto Ruth > 12/03/20 3020
== END ==
LOC: M SOG 13:48
PROVIDERS: ATTEND Orthopaedic Surgery Adult Reconstructive Orthopaedic Surgery
DX: M19.071 Primary osteoarthritis, right ankle and foot (principal); M25.571 Pain in right ankle and joints of right foot

== ENCOUNTER → 2020-12-03 | Outpatient (CLI) | payer MEDICARE ==
--- NOTE | 2020-12-04 18:47 | REP ---
INDICATION: PAIN. COMPARISON: None. TECHNIQUE: Single AP weightbearing view of the right foot FINDINGS: Moderate osteoarthritic degenerative changes are appreciated primarily involving the 1st metatarsophalangeal joint including periarticular sclerosis, osteophytosis and joint space narrowing with adjacent subtle swelling. Moderate arthritic changes also noted through the midfoot and tarsometatarsal joints. No obvious acute fracture or dislocation. IMPRESSION: Moderate arthritic degenerative changes primarily involving the 1st metatarsophalangeal joint and midfoot joints. No evidence for acute/chronic fracture deformity. <Electronically signed by Wilberto Ruth > 12/04/20 0017
== END ==
LOC: M SOG 14:37
PROVIDERS: ATTEND Orthopaedic Surgery Adult Reconstructive Orthopaedic Surgery
DX: M19.071 Primary osteoarthritis, right ankle and foot (principal); M25.571 Pain in right ankle and joints of right foot